=== PATIENT | female | born 1945 | race Two or more races ===

== ENCOUNTER 2022-10-16 17:43 | Emergency (ER) | payer MEDICARE, OTHER ==
[~2022-10-16] VITALS: Ht 165.1 cm; Wt 86.5 kg
[2022-10-16 18:51] LABS: Basophils # (auto) 0.1 10 ^3/uL (0-0.2); Basophils % (auto) 0.8 % (0.0-2.0); Eosinophils # (auto) 0.1 10 ^3/uL (0-0.8); Eosinophils % (auto) 1.2 % (0.0-7.0); Hematocrit 31.5 % (36.0-46.0); Hemoglobin 10.6 g/dL (12.2-16.2); Lymphocytes # (auto) 0.9 10 ^3/uL (0.4-5.4); Lymphocytes % (auto) 12.4 % (10.0-50.0); Mean Corpuscular Hemoglobin 30.2 pg (28.0-32.0); Mean Corpuscular Hgb Conc. 33.7 g/dL (32.0-36.0); Mean Corpuscular Volume 89.7 fL (80.0-100.0); Monocytes # (auto) 0.5 10 ^3/uL (0-1.3); Monocytes % (auto) 6.2 % (0.0-12.0); Neutrophils # (auto) 6.1 10 ^3/uL (1.6-8.6); Neutrophils % (auto) 79.4 % (37.0-80.0); Nucleated Red Blood Cells % 0.1 %; Red Blood Cells 3.51 10^6/uL (4.0-5.20); Red Cell Distribution Width 13.4 % (11.8-14.3); White Blood Cell 7.6 10^3/uL (4.4-10.8)
[2022-10-16 18:55] LABS: Albumin 3.5 g/dL (3.4-5.0); BUN/Creatinine Ratio 18.5 (10.0-20.0); Calcium 9.7 mg/dL (8.5-10.1)
[2022-10-16 18:58] LABS: Bilirubin, Total 0.4 mg/dL (0.2-1.0); Total Protein 7.5 g/dL (6.4-8.2)
[2022-10-16 23:21] LABS: Urine Bacteria FEW /hpf (None Seen); Urine Blood Negative /uL (Negative); Urine Clarity Clear (Clear); Urine Color Colorless (Yellow); Urine Protein, UAD Negative (Negative); Urine Specific Gravity 1.009 (1.001-1.035); Urine Urobilinogen Normal (Negative); Urine WBC 1 /hpf (0 - 5); Urine pH 6.5 (5.0-8.0)
[2022-10-17] MEDS ORDERED: MECLIZINE HCL 25 MG TAB PO ONE (01:00)
[2022-10-17 01:20] VITALS: PULSE 63; PULSE 67; RESP 14; RESP 17; O2SAT 100; O2SAT 97
[2022-10-17] MEDS ORDERED: SODIUM CHLORIDE 0.9% 1,000 ML IV ONE (02:45)
[2022-10-17 19:45] VITALS: PULSE 73; RESP 18; O2SAT 95
[2022-10-17 23:22] VITALS: BP 128/65; PULSE 69; RESP 16; TEMP 98.4; O2SAT 96
== END 2022-10-18 01:11 ==
LOC: ER 17:43 → EDBD 17:43 → ER 10-17 23:30
DX: R42 Dizziness and giddiness (principal); N17.9 Acute kidney failure, unspecified; R51.9 Headache, unspecified; E66.01 Morbid (severe) obesity due to excess calories; R06.02 Shortness of breath; Z68.31 Body mass index [BMI] 31.0-31.9, adult
CPT/HCPCS: 36415; 70450; 80053; 81001; 83690; 83880; 84484; 85025; 93005; 96360; 96361; 99285; J7030; J8597